=== PATIENT | female | born 1965 | race Caucasian/White ===

== ENCOUNTER 2019-03-14 01:37 | Day surgery (SDC) | payer BC, SELFPAY ==
[2019-03-05 10:20] VITALS: BMI 31.2
--- NOTE | 2019-03-13 13:30 | HP_ITS ---
DATE OF SERVICE: HISTORY: A 53-year-old with sinus issues. She has had repeated sinus infections. She has had multiple medications and multiple antibiotics. PHYSICAL EXAMINATION: NOSE: Congested. CHEST: Clear. HEART: Without murmurs. ABDOMEN: Soft. EXTREMITIES: Negative. REVIEW OF SYSTEMS: Unremarkable. IMAGING DATA: CAT scan shows thickening of the maxillary, ethmoid, and sphenoid sinuses. PLAN: Functional sinus procedure with fusion protocol. D I MT: Carrington
[2019-03-14] VITALS (8 sets, daily range): BP systolic 109–132; BP diastolic 61–75; PULSE 56–82; RESP 14–20; TEMP 36.3–36.7; O2SAT 98–100
--- NOTE | 2019-03-14 06:25 | WPDHPUPDATE1 ---
History and Physical Update Update Date/Time: 03/14/19 06:25 History and Physical has been reviewed, including an updated exam of the patient. There are NO changes in the patient's condition. Risks, benefits, and alternatives have been discussed and questions answered. Patient agrees to proceed with procedure.
[2019-03-14] MEDS: LACTATED RINGERS 1,000 ML 30 ML IV CONT (06:45)
--- NOTE | 2019-03-14 07:48 | WPDANESEPPF ---
Anes - Initial Pre Proc Eval Procedure: Operation Date: 03/14/19 08:00 Proposed Procedures p Functional Endoscopic Sinus Surgery With Fusion - Carlos Vyas MD Date/Time: 03/14/19 07:48 Surgeon: aCrlos Vyas MD Pre Op Diagnosis: Chronic Sinusitis Patient Data Age: 53 Gender: F Height: 5 ft 2 in Weight: 77.5 kg Last Vital Signs Temp 36.3 C L 03/14/19 06:51 Pulse 73 03/14/19 06:51 Resp 20 03/14/19 06:51 BP 132/75 03/14/19 06:51 Pulse Ox 100 03/14/19 06:51 Allergies Allergy/AdvReac Type Severity Reaction Status Date / Time No Known Allergies Allergy Verified 03/14/19 06:49 Home Medications Medication Instructions Recorded Confirmed Type rqaterx-cyenzxnscrzue-ppujbtuq 250 1 tablet PO Q4-6H PRN 01/07/19 03/05/19 History mg-250 mg-65 mg tablet fexofenadine 180 mg tablet 180 mg PO DAILY 01/07/19 03/14/19 History lactobacillus combination no.8 3 3,000 mmu cells PO DAILY 01/07/19 03/14/19 History billion cell capsule levothyroxine 50 mcg tablet 50 mcg PO DAILY #90 tablet 01/08/19 03/14/19 Rx omeprazole 20 mg PO DAILY 03/05/19 03/14/19 History sumatriptan succinate 100 mg PO DIRECTED 03/05/19 03/14/19 History Patient hx anesthesia problems: none Family hx anesthesia problems: none PMFSH Past Medical History Medical History Chondromalacia of both patellae GERD (gastroesophageal reflux disease) Hx of migraines Obesity AZRA (obstructive sleep apnea) Surgical History Surgical History History of surgical removal of ganglion cyst Family History Family History Mother Hypertension Patient's mother is in good health Father Patient's father is Social History Social History Smoking status: Never smoker Second hand tobacco smoke exposure: No Alcohol intake: never Anes - Eval Final PreProcedure Day of Procedure 03/14/19 07:48 Patient weight: obese Heart: regular rate and rhythm Lungs: clear to auscultation Airway: Mallampati scale class II Neurological: alert and oriented Last oral intake: >/= 8 hours ASA classification: III Emergent: no Anesthetic plan: proceed Anesthesia type and monitoring: general ETT and standard monitoring Informed Consent: The patient's anesthetic plan and its attendant risks and benefits were discussed with the patient/family/POA. Questions were solicited and answers provided to the satisfaction of the patient/family/POA.
[2019-03-14] MEDS: LIDO 1%/EPINEPHRINE 1:100,000 20 ML VIAL 6 ML INFILTRATE (08:27)
--- NOTE | 2019-03-14 08:41 | PM.OP ---
Procedure Note - Brief Procedure Note - Brief Date of procedure: 03/14/19 Pre-op diagnosis: Chronic Sinusitis Procedure performed: Patient prepped and draped in usual fashion after induction of general endotracheal anesthesia. The nose was packed with cocaine 4% impregnated cottonoids. Injected 1% xylocaine 1 to [id number] epinephrine. With the aid of the 0 degree endoscope on the right side the nose was inspected the middle turbinate was medialized and turbenectomy was done with the micro debrider the ethmoid bulla opened with microdebrider as was the basal lamella and the posterior ethmoid. The natural ostia of the maxillary sinus was opened and enlarged with microdebrider thickened mucous membrane lining was removed and then packed with a mature this procedure repeated on the other sinus with identical similar findings. Patient awakened returned to recovery in good condition Anesthesia: GLMA Surgeon: Carlos Vyas MD Estimated blood loss (mL): 10 Drains: No Packing: Yes (Hemaderm) Pathology: none sent Complications: No immediate complications Condition: stable Disposition: PACU
== END 2019-03-14 10:36 | disposition home or self-care (01) ==
PROVIDERS: PCP Internal Medicine; Visit Provider Otolaryngology
PROC: (CPT 31255; principal; 2019-03-14 08:00)
DX: J32.9 Chronic sinusitis, unspecified (principal); G47.33 Obstructive sleep apnea (adult) (pediatric); K21.9 Gastro-esophageal reflux disease without esophagitis; E66.9 Obesity, unspecified; Z68.31 Body mass index [BMI] 31.0-31.9, adult
CPT/HCPCS: 31255; 31267; 61782; A9270; J0131; J0330; J1100; J2250; J2405; J2704; J3010; J7120

== ENCOUNTER 2020-04-27 09:37 | Outpatient (CLI) | payer OTHER, SELFPAY ==
--- NOTE | ~2020-04-27 | MM_ITS ---
EXAMINATION: MM screening [facility] BI w vito HISTORY: Screening TECHNIQUE: Craniocaudal and mediolateral oblique 3-D tomosynthesis images were obtained and synthetic 2-D images were generated. CAD analysis was submitted and interpreted. COMPARISON: Comparison to multiple prior studies sequentially, with oldest reviewed study dated 01/13. BREAST PARENCHYMAL COMPOSITION: There are scattered areas of fibroglandular density. FINDINGS: There is no evidence of suspicious mass, calcification, or architectural distortion to sugg est malignancy in either breast. There has been no suspicious interval change. IMPRESSION: 1. No mammographic evidence of malignancy. 2. Recommend routine screening mammography in one year. BI-RADS Category 1: Negative Reviewed, dictated and finalized at location A.
== END 2020-04-27 09:38 | disposition home or self-care (01) ==
LOC: ANHIMG 09:39
PROVIDERS: PCP Internal Medicine; Visit Provider Obstetrics & Gynecology
DX: Z12.31 Encounter for screening mammogram for malignant neoplasm of breast (principal)
CPT/HCPCS: 77063; 77067

== ENCOUNTER 2020-06-08 09:40 | Outpatient (CLI) | payer OTHER, SELFPAY ==
--- NOTE | ~2020-06-08 | MR_ITS ---
EXAMINATION: MR brain/brain stem wo con DATE: 06/08/2020 10:48 INDICATION: Headache, unspecified. TECHNIQUE: Magnetic resonance imaging (MRI) of the brain and brainstem was performed without intraven ous contrast. Sequences included sagittal and axial T1-weighted FSE, axial diffusion-weighted FS EPI, axial T2*-weighted GRE, axial T2-weighted FLAIR Propeller, and axial T2-weighted Propeller. Apparent diffusion coefficient (ADC) maps were created. COMPARISON: Brain MRI 06/15/2016 FINDINGS: There are scattered areas of nonspecific increased T2-weighted signal intensity in the cere bral white matter. There is no intracranial hemorrhage, acute infarction, or abnormal intracranial ma ss lesion. The ventricles are normal in size. There is mild mucosal thickening in the paranasal sinus es. The orbits are normal. The mastoid air cells are normal. IMPRESSION: 1. Stable mild nonspecific cerebral white matter disease, which likely represents chronic small vesse l ischemic disease. Reviewed, dictated and finalized at location A. IMPRESSION: 1. Stable mild nonspecific cerebral white matter disease, which likely represen ts chronic small vessel ischemic disease.
== END 2020-06-08 09:41 | disposition home or self-care (01) ==
PROVIDERS: PCP Internal Medicine; Visit Provider Internal Medicine
DX: R51.9 Headache, unspecified (principal); R90.82 White matter disease, unspecified
CPT/HCPCS: 70551

== ENCOUNTER 2021-01-29 07:33 | Outpatient (CLI) | payer OTHER, SELFPAY ==
--- NOTE | 2021-02-01 13:57 | WPDHOMESLEEP ---
Sleep Study - Home Unattended Date of Study: 01/29/21 <Hui Carrasco DO - Last Filed: 02/01/21 14:16> Ordering Provider: Eliezer Cheung DO <Hui Carrasco, DO - Last Filed: 02/01/21 14:16> Interpreting Provider: Hui Carrasco DO <Hui Carrasco, DO - Last Filed: 02/01/21 14:16> Home Sleep Study Type: Watch PAT <Hui Carrasco, DO - Last Filed: 02/01/21 14:16> Height: 1.55 m <Hui Carrasco DO - Last Filed: 02/01/21 14:16> Weight: 72.575 kg <Hui Carrasco DO - Last Filed: 02/01/21 14:16> Body Mass Index: 30.2 <Hui Carrasco DO - Last Filed: 02/01/21 14:16> Neck Circumference (inches): 13 <Hui Carrasco DO - Last Filed: 02/01/21 14:16> Plato: 9 <Hui Carrasco DO - Last Filed: 02/01/21 14:16> Reason for Sleep Study Patient had an HSAT on 10/04/2017 where she had an AHI of 26.4. She was previously diagnosed with AZRA before this and has been on PAP Therapy. <Hui Carrasco DO - Last Filed: 02/01/21 14:16> Sleep History The patient is a 55-year-old female with GERD, hypothyroidism, migraines, obesity and previously diagnosed obstructive sleep apnea a home sleep test ordered by her primary care physician due to morning headaches, unrefreshing sleep and daytime hypersomnolence. 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 The patient states that she rarely awakens from sleep short of breath. She occasionally awakens at night with heartburn, belching or cough. She rarely snores and is never loud enough that others complain. She occasionally wakes up gasping for air throughout the night. She rarely has breathing problems at night observed by others. She denies sweating excessively at night. She denies having heart palpitations or irregular heartbeats during the night. She rarely falls asleep during the day and never while driving. She denies sleep paralysis, cataplexy and hypnagogic/ hypnopompic hallucinations. She denies having trouble at work due to sleepiness. She denies having nightmares. She occasionally feels sad or depressed. She occasionally has anxiety. She rarely notices parts of her body jerk. She occasionally kicks during the night. She frequently has crawling and aching feelings in her legs and occasionally has leg pain during the night. She rarely going into her teeth during sleep but occasionally awakens with a morning jaw pain. She is really bothered by pain during the day but never awakened by pain during the night. She denies waking up feeling stiff in the morning with sore and achy muscles. She goes to bed at 11:00 p.m. on weekdays and midnight on the weekends. It takes her 30 minutes to fall asleep. She wakes up a few times throughout the night. When she awakens, she will turn over and try to find a new position. She can not fall back asleep within a couple minutes. She awakens at 6:45 a.m. on both weekdays and weekends. She typically gets between 6 and 7 hours of sleep per night. She will stay in bed for 10 minutes after awakening in the morning. She currently lives with her mother and sister. She does not consume any caffeinated beverages within 2 hours of bedtime. She does not engage in physical exercise before bedtime. She will watch television before falling asleep. She does not take naps in the afternoon or the evening. she denies consuming any caffeinated beverages throughout the day. She denies tobacco, alcohol recreational drug use. <Hui Carrasco DO - Last Filed: 02/01/21 14:16> [facility] Past Medical History Medical History: Medical History (Updated 02/01/21 @ 14:12 by Hui Carrasco DO) Chondromalacia of both patellae GERD (gastroesophageal reflux disease) Hx of migraines Obesity AZRA (obstructive sleep apnea) <Hui Carrasco DO - Last Filed: 02/01/21 14:16> Surgical History Surgical History: Surgical History (Reviewed 02/01/21 @
[2021-02-01 14:01] VITALS: BMI 30.2
== END 2021-02-01 09:26 | disposition home or self-care (01) ==
LOC: ANHCSM 07:34
PROVIDERS: PCP Internal Medicine; Visit Provider Internal Medicine
DX: G47.33 Obstructive sleep apnea (adult) (pediatric) (principal); K21.9 Gastro-esophageal reflux disease without esophagitis; E03.9 Hypothyroidism, unspecified; E66.9 Obesity, unspecified; Z68.30 Body mass index [BMI] 30.0-30.9, adult
CPT/HCPCS: 95800

== ENCOUNTER 2021-02-22 12:16 | Outpatient (CLI) | payer OTHER, SELFPAY ==
[2021-02-22 19:05] LABS: SARS-CoV-2 RNA PCR Negative (Negative)
== END 2021-02-22 12:17 | disposition home or self-care (01) ==
LOC: CHSLAB 12:17
PROVIDERS: PCP Internal Medicine; Visit Provider Internal Medicine
DX: Z01.818 Encounter for other preprocedural examination (principal); Z20.822 Contact with and (suspected) exposure to COVID-19
CPT/HCPCS: C9803; U0003; U0005

== ENCOUNTER 2021-02-24 19:52 | Outpatient (CLI) | payer OTHER, SELFPAY ==
--- NOTE | 2021-03-01 10:35 | WPDSLEEPSTUD ---
Sleep Study Date of Study: 02/24/21 Ordering Provider: Eliezer Cheung DO Interpreting Physician: Samantha Lebron MD Sleep Study Type: CPAP Titration Height: 1.57 m Weight: 68.946 kg Body Mass Index: 27.8 Neck Circumference (inches): 13 Micro: 9 Reason for Sleep Study * Home sleep apnea test 01/29/2021 with AHI 11.5 which is consistent with mild sleep apnea; central apnea index of 3.3, with 21 central events. Due to the having more than 10 central events, the patient is not a candidate for autoPAP; she presents for a CPAP titration. When reading the office note, if the patient is having symptoms of TMJ dysfunction which includes jaw pain and jaw popping, the mandibular advancement devices could worsen those symptoms * Home sleep apnea test 10/04/2017 with an AHI of 26.4. She was previously diagnosed with AZRA before this and has been on PAP Therapy. Sleep History Nadia Joshua is a 55-year-old female with GERD, hypothyroidism, migraines, obesity and previously diagnosed obstructive sleep apnea a home sleep test ordered by her primary care physician due to morning headaches, unrefreshing sleep and daytime hypersomnolence. 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 The patient states that she rarely awakens from sleep short of breath. She occasionally awakens at night with heartburn, belching or cough. She rarely snores and is never loud enough that others complain. She occasionally wakes up gasping for air throughout the night. She rarely has breathing problems at night observed by others. She denies sweating excessively at night. She denies having heart palpitations or irregular heartbeats during the night. She rarely falls asleep during the day and never while driving. She denies sleep paralysis, cataplexy and hypnagogic/ hypnopompic hallucinations. She denies having trouble at work due to sleepiness. She denies having nightmares. She occasionally feels sad or depressed. She occasionally has anxiety. She rarely notices parts of her body jerk. She occasionally kicks during the night. She frequently has crawling and aching feelings in her legs and occasionally has leg pain during the night. She rarely going into her teeth during sleep but occasionally awakens with a morning jaw pain. She is really bothered by pain during the day but never awakened by pain during the night. She denies waking up feeling stiff in the morning with sore and achy muscles. Normal bedtime is 11:00 p.m., taking 30 minutes to fall asleep. She wakes up a few times throughout the night. When she awakens, she will turn over and try to find a new position. She can not fall back asleep within a couple minutes. She awakens at 6:45 a.m. on both weekdays and weekends. She typically gets between 6 and 7 hours of sleep per night. She will stay in bed for 10 minutes after awakening in the morning. She currently lives with her mother and sister. She does not consume any caffeinated beverages within 2 hours of bedtime. She does not engage in physical exercise before bedtime. She will watch television before falling asleep. She does not take naps in the afternoon or the evening. Habits: No caffeine, tobacco, alcohol, or recreational drug use. [facility] Past Medical History Medical History (Updated 03/01/21 @ 10:40 by Samantha Lebron MD) Chondromalacia of both patellae GERD (gastroesophageal reflux disease) Hx of migraines Hyperlipidemia Hypothyroidism Obesity AZRA (obstructive sleep apnea) Surgical History Surgical History Deviated septum History of surgical removal of ganglion cyst Family History Family History Mother Hypertension Patient's mother is in good health Father Patient's father is Social History Social History Smoking status: Never smoker Second
[2021-03-01 10:49] VITALS: BMI 27.8
== END 2021-02-25 07:41 | disposition home or self-care (01) ==
PROVIDERS: PCP Internal Medicine; Visit Provider Internal Medicine
DX: G47.33 Obstructive sleep apnea (adult) (pediatric) (principal)
CPT/HCPCS: 95811

== ENCOUNTER 2021-08-25 10:39 | Outpatient (CLI) | payer OTHER, SELFPAY ==
--- NOTE | ~2021-08-25 | XR_ITS ---
XR knee RT min 4V DATE: 08/25/2021 10:58 INDICATION: Right knee pain TECHNIQUE: [place] and weightbearing AP, PA and lateral views COMPARISON: 02/01/2019 right knee FINDINGS: No fracture or dislocation or joint effusion. Joint spaces are relatively well preserved. N o radiopaque intra-articular loose body or chondrocalcinosis. No periosteal reaction or bone destruct ion. IMPRESSION: No significant abnormality Reviewed, dictated and finalized at location A. IMPRESSION: No significant abnormality
== END 2021-08-25 10:40 | disposition home or self-care (01) ==
LOC: ANHIMG 10:41
PROVIDERS: PCP Internal Medicine; Visit Provider Physician Assistant Surgical
DX: M25.561 Pain in right knee (principal)
CPT/HCPCS: 73564

== ENCOUNTER 2021-09-15 09:01 | Outpatient (CLI) | payer OTHER, SELFPAY ==
--- NOTE | ~2021-09-15 | MM_ITS ---
EXAMINATION: MM screening [facility] BI w vito HISTORY: Screening TECHNIQUE: Craniocaudal and mediolateral oblique 3-D tomosynthesis images were obtained and synthetic 2-D images were generated. CAD analysis was submitted and interpreted. COMPARISON: Comparison to multiple prior studies sequentially, with oldest reviewed study dated 05/2014. BREAST PARENCHYMAL COMPOSITION: There are scattered areas of fibroglandular density. FINDINGS: There is no evidence of suspicious mass, calcification, or architectural distortion to sugg est malignancy in either breast. There has been no suspicious interval change. IMPRESSION: 1. No mammographic evidence of malignancy. 2. Recommend routine screening mammography in one year. BI-RADS Category 1: Negative Reviewed, dictated and finalized at location A.
== END 2021-09-15 09:02 | disposition home or self-care (01) ==
PROVIDERS: PCP Internal Medicine; Visit Provider Obstetrics & Gynecology
DX: Z12.31 Encounter for screening mammogram for malignant neoplasm of breast (principal)
CPT/HCPCS: 77063; 77067

== ENCOUNTER 2022-09-21 15:09 | Outpatient (CLI) | payer OTHER, SELFPAY ==
--- NOTE | ~2022-09-21 | CT_ITS ---
Non-contrast CT scan of the Abdomen and Pelvis Clinical indication: Abdominal pain Technique: 2.5 mm axial scans were obtained through the abdomen and pelvis without intravenous or or al contrast. Dose reduction technique was used on this scan by utilizing automated exposure control a nd iterative reconstruction technique. The dose-length product (DLP) was 429.68 mGy-cm. Findings: Images through the lung bases reveal no abnormalities. There is no evidence of renal or ureteral calculi. The kidneys and the ureters are nondilated. The liver, spleen, pancreas, gallbladder, and adrenals appear normal. There is no aortic aneurysm. There is no evidence of bowel obstruction. Normal appendix. Images through the pelvis were performed. There is no evidence of ascites or lymphadenopathy. Urinary bladder unremarkable. Left ovary is mildly prominent as compared to the right, though without distin ct pathologic mass. Impression: Prominent left ovary as compared to the right, though without definite mass lesion. Follow-up pelvic ultrasound could be considered to further evaluate the left ovary, as indicated. No other significant findings. Reviewed, dictated and finalized at location . Impression: Prominent left ovary as compared to the right, though without definite mass les ion. Follow-up pelvic ultrasound could be considered to further evaluate the le ft ovary, as indicated. No other significant findings.
== END 2022-09-21 15:10 | disposition home or self-care (01) ==
PROVIDERS: PCP Internal Medicine; Visit Provider Internal Medicine
DX: R10.12 Left upper quadrant pain (principal)
CPT/HCPCS: 74176

== ENCOUNTER 2023-01-11 13:07 | Outpatient (CLI) | payer OTHER, SELFPAY ==
--- NOTE | ~2023-01-11 | XR_ITS ---
EXAM: XR clavicle LT DATE: 01/11/2023 13:26 HISTORY: PAIN TO MEDIAL LEFT CLAVICLEX 2 MONTHS - NO INJURY . COMPARISON: None available. FINDINGS: Decreased mineralization. No fracture or dislocation. No lytic or blastic lesion. Likely r otator cuff calcific tendinitis. Mild degenerative change in the AC joint and glenohumeral joint. No erosion or periosteal change. Soft tissues within normal limits. IMPRESSION: No acute osseous finding in the left clavicle. Reviewed, dictated and finalized at location K. FOOD SALES ASSISTANT
== END 2023-01-11 13:08 | disposition home or self-care (01) ==
PROVIDERS: PCP Internal Medicine; Visit Provider Physician Assistant
DX: M89.8X1 Other specified disorders of bone, shoulder (principal)
CPT/HCPCS: 73000

== ENCOUNTER → 2023-01-21 09:20 | Outpatient (CLI) | payer OTHER, SELFPAY ==
--- NOTE | ~2023-01-21 | MM_ITS ---
EXAMINATION: MM screening [facility] BI w vito HISTORY: Screening TECHNIQUE: Craniocaudal and mediolateral oblique 3-D tomosynthesis images were obtained and synthetic 2-D images were generated. CAD analysis was submitted and interpreted. COMPARISON: Comparison to multiple prior studies sequentially, with oldest reviewed study dated 04/02. BREAST PARENCHYMAL COMPOSITION: Breast composed of scattered areas of fibroglandular density FINDINGS: There is no evidence of suspicious mass, calcification, or architectural distortion to sugg est malignancy in either breast. There has been no suspicious interval change. IMPRESSION: 1. No mammographic evidence of malignancy. 2. Recommend routine screening mammography in one year. BI-RADS Category 1: Negative . Reviewed, dictated and finalized at location A. TY COMMISSIONER
== END ==
PROVIDERS: PCP Internal Medicine; Visit Provider Obstetrics & Gynecology
DX: Z12.31 Encounter for screening mammogram for malignant neoplasm of breast (principal)
CPT/HCPCS: 77063; 77067

== ENCOUNTER 2023-05-05 00:28 | Day surgery (SDC) | payer OTHER, SELFPAY ==
[2023-04-28 08:45] VITALS: BMI 31.2
--- NOTE | 2023-05-03 10:18 | SUR.PREOP ---
Patient called regarding upcoming procedure. Voicemail left regarding new appointment times.
--- NOTE | 2023-05-04 08:36 | PC.NURSE ---
Patient called regarding upcoming procedure. Reviewed preop instructions, appointment times changed to come in at 1300 for 1430 and procedure prep. patients verbalizes understanding and good with new times.
[2023-05-05 13:02] VITALS: BP 139/71; PULSE 53; RESP 19; TEMP 36.2; O2SAT 100
--- NOTE | 2023-05-05 13:17 | WPDANESEPPF ---
Anes - Initial Pre Proc Eval Procedure: Operation Date: 05/05/23 14:30 Proposed Procedures p Esophagogastroduodenoscopy - Earl Blackmon MD Date/Time: 05/05/23 13:17 Surgeon: Earl Blackmon MD Pre Op Diagnosis: GERD,Dysphagia Patient Data Age: 57 Gender: F Height: 1.55 m Weight: 75 kg Last Vital Signs Temp 97.2 F L 05/05/23 13:02 Pulse 53 L 05/05/23 13:02 Resp 19 05/05/23 13:02 BP 139/71 05/05/23 13:02 Pulse Ox 100 05/05/23 13:02 O2 Del Method Room Air 05/05/23 13:02 Allergies Allergy/AdvReac Type Severity Reaction Status Date / Time No Known Allergies Allergy Verified 05/05/23 13:00 Home Medications Medication Instructions Recorded Confirmed Type aspirin 81 mg capsule 81 mg PO DAILY 01/26/21 05/03/23 History simethicone 125 mg capsule (Gas-X 125 mg PO DAILY PRN Gas Pain 10/19/21 05/03/23 History Extra Strength) fexofenadine 60 mg tablet (Siobhan 60 mg PO Q12H 08/30/22 05/03/23 History Allergy) topiramate 50 mg tablet 50 mg PO BID #180 tabs 01/04/23 05/03/23 Rx sertraline 50 mg tablet 50 mg PO DAILY #90 tabs 01/11/23 05/03/23 Rx ergocalciferol (vitamin D2) 1,250 1,250 mcg PO WEEKLY #12 caps 03/16/23 05/03/23 Rx mcg (50,000 unit) capsule rosuvastatin 5 mg tablet 5 mg PO DAILY #90 tabs 03/16/23 05/03/23 Rx levothyroxine 50 mcg tablet 50 mcg PO DAILY #90 tabs 04/10/23 05/03/23 Rx meloxicam 15 mg tablet 15 mg PO PRN PRN Pain 04/28/23 05/03/23 History omeprazole 40 mg capsule,delayed 40 mg PO BID 04/28/23 05/03/23 History release Patient hx anesthesia problems: none Family hx anesthesia problems: none Results Review: All pre-operative results and documents have been reviewed as part of the pre-operative evaluation. PMFSH Past Medical History Medical History Chondromalacia of both patellae Colon cancer screening Dysphagia GERD (gastroesophageal reflux disease) Hx of migraines Hyperlipidemia Hypothyroidism Obesity AZRA (obstructive sleep apnea) Surgical History Surgical History Deviated septum History of surgical removal of ganglion cyst Family History Family History Mother Hypertension Patient's mother is in good health Father Patient's father is Social History Social History Smoking status: Never smoker Second hand tobacco smoke exposure: No Alcohol intake: never Substance use: unknown Do You Feel Safe in your Home?: Yes Lack of Transportation: No Lack of Food: Never True Current Housing: I Have Housing Concerned About Future Housing: No Difficulty Paying Gas/Electric Bills: No Difficulty Paying for Meds: No Currently Unemployed: No Education: High School Diploma/GED Difficulty w/ Childcare or Family Care: No Living arrangements: with family Spiritual care concerns: No Anes - Eval Final PreProcedure Day of Procedure 05/05/23 13:17 Patient weight: obese Heart: regular rate and rhythm Lungs: clear to auscultation Airway: Mallampati scale class II Neurological: alert and oriented Last oral intake: >/= 8 hours ASA classification: III Emergent: no Anesthetic plan: proceed Anesthesia type and monitoring: general GIVS and standard monitoring Results Review: All pre-operative results and documents have been reviewed as part of the pre-operative evaluation. Informed Consent: The patient's anesthetic plan and its attendant risks and benefits were discussed with the patient/family/POA. Questions were solicited and answers provided to the satisfaction of the patient/family/POA.
[2023-05-05] MEDS: LACTATED RINGERS 1,000 ML 150 ML IV CONT (13:30)
--- NOTE | 2023-05-05 13:54 | WPDHPUPDATE1 ---
History and Physical Update Update Date/Time: 05/05/23 13:54 History and Physical has been reviewed, including an updated exam of the patient. There are NO changes in the patient's condition. Risks, benefits, and alternatives have been discussed and questions answered. Patient agrees to proceed with procedure.
[2023-05-05 14:08] VITALS: BP 120/72; PULSE 66; RESP 14; O2SAT 99
[2023-05-05 14:18] VITALS: BP 134/76; PULSE 58; RESP 17; O2SAT 100
[2023-05-05 14:28] VITALS: BP 129/76; PULSE 57; RESP 13; O2SAT 99
== END 2023-05-05 14:38 | disposition home or self-care (01) ==
PROVIDERS: PCP Internal Medicine; Visit Provider Internal Medicine Gastroenterology
PROC: 0DJ08ZZ Inspection of Upper Intestinal Tract, Via Natural or Artificial Opening Endoscopic (ICD-10-PCS; CPT 43235; principal; 2023-05-05 14:30)
DX: K29.70 Gastritis, unspecified, without bleeding (principal); R13.10 Dysphagia, unspecified; E78.5 Hyperlipidemia, unspecified; E03.9 Hypothyroidism, unspecified; G47.33 Obstructive sleep apnea (adult) (pediatric); E66.9 Obesity, unspecified; Z68.31 Body mass index [BMI] 31.0-31.9, adult; Z79.82 Long term (current) use of aspirin
CPT/HCPCS: 43239; 43450; 88305; J2704; J7120

== ENCOUNTER 2023-07-12 12:34 | Outpatient (CLI) | payer OTHER, SELFPAY ==
--- NOTE | ~2023-07-12 | XR_ITS ---
Right Knee Technique: AP, lateral, and sunrise views were obtained. Clinical History: Chondromalacia patella Findings: No fracture or dislocation is seen. Osseous alignment is anatomic. Joint spaces are preserv ed without degenerative or erosive change. Soft tissues are unremarkable. No joint effusion is seen. Impression: Unremarkable right knee radiographs. Reviewed, dictated and finalized at location . Impression: Unremarkable right knee radiographs.
--- NOTE | ~2023-07-12 | XR_ITS ---
Left Knee Technique: AP, lateral, and sunrise views were obtained. Clinical History: Chondromalacia patella Findings: No fracture or dislocation is seen. Osseous alignment is anatomic. Joint spaces are preserv ed without degenerative or erosive change. Soft tissues are unremarkable. No joint effusion is seen. Impression: Unremarkable left knee radiographs. Reviewed, dictated and finalized at location . Impression: Unremarkable left knee radiographs.
== END 2023-07-12 12:35 | disposition home or self-care (01) ==
LOC: ANHIMG 12:34
PROVIDERS: PCP Internal Medicine; Visit Provider Orthopaedic Surgery
DX: M22.41 Chondromalacia patellae, right knee (principal); M22.42 Chondromalacia patellae, left knee
CPT/HCPCS: 73564

== ENCOUNTER 2024-01-17 13:29 | Outpatient (CLI) | payer OTHER, SELFPAY ==
--- NOTE | 2024-01-17 14:30 | NEURO_ITS ---
Impression: # Complains of right upper extremity pain. # Normal Nerve Conduction Study, no Carpal Tunnel Syndrome or ulnar neuropathy. # Normal needle/EMG exam. # Clinical correlation recommended. Higher involvement needs to be ruled out. Nerve Conduction Studies Anti Sensory Summary Table Stim Site NR Peak (ms) P-T Amp (?V) Site1 Site2 Delta-P (ms) Dist (cm) Mason (m/s) Right Median Anti Sensory (2-3nd Digit) Wrist 3.4 57.5 Wrist 2-3nd Digit 3.4 14.0 41 Wrist 3.5 52.9 Wrist 2-3nd Digit 3.4 14.0 41 Right Radial Anti Sensory (Base 1st Digit) Wrist 2.3 18.0 Wrist Base 1st Digit 2.3 0.0 Right Ulnar Anti Sensory (5th Digit) Wrist 2.5 31.6 Wrist 5th Digit 2.5 14.0 56 Motor Summary Table Stim Site NR Onset (ms) O-P Amp (mV) Site1 Site2 Delta-0 (ms) Dist (cm) Mason (m/s) Right Median Motor (Abd Poll Brev) Wrist 3.3 6.6 Elbow Wrist 6.0 29.0 48 Elbow 9.3 4.0 Right Ulnar Motor (Abd Dig Minimi) Wrist 2.8 5.2 A Elbow Wrist 4.9 28.0 57 A Elbow 7.7 4.7 F Wave Studies NR F-Lat (ms) L-R F-Lat (ms) Right Median (Mrkrs) (Abd Poll Brev) 28.39 Right Ulnar (Mrkrs) (Abd Dig Min) 30.04 EMG Side Muscle Nerve Root Ins Act Fibs Amp Dur Recrt Comment Right 1stDorInt Ulnar C8-T1 Nml Nml Nml Nml Nml Right Ext Indicis Radial (Post Int) C7-8 Nml Nml Nml Nml Nml Right Ext Digitorum Radial (Post Int) C7-8 Nml Nml Nml Nml Nml Right BrachioRad Radial C5-6 Nml Nml Nml Nml Nml Right PronatorTeres Median C6-7 Nml Nml Nml Nml Nml Right Abd Poll Brev Median C8-T1 Nml Nml Nml Nml Nml Right ABD Dig Min Ulnar C8-T1 Nml Nml Nml Nml Nml Right Biceps Musculocut C5-6 Nml Nml Nml Nml Nml Right Triceps Radial C6-7-8 Nml Nml Nml Nml Nml Right Deltoid Axillary C5-6 Nml Nml Nml Nml Nml MTDD
== END 2024-01-17 13:30 | disposition home or self-care (01) ==
LOC: ANHNEURO 13:30
PROVIDERS: PCP Internal Medicine; Visit Provider Internal Medicine
DX: R20.2 Paresthesia of skin (principal); M79.601 Pain in right arm
CPT/HCPCS: 95886; 95909

== ENCOUNTER 2024-03-26 11:10 | Outpatient (CLI) | payer OTHER, SELFPAY ==
--- NOTE | ~2024-03-26 | XR_ITS ---
Right elbow Technique: AP, oblique, and lateral views were obtained. Clinical History: Pain Findings: No acute fracture or dislocation is seen. Osseous alignment is anatomic. Joint spaces are p reserved. There is no displacement of the fat pads, and soft tissues are unremarkable. Impression: Unremarkable radiographs. Reviewed, dictated and finalized at [facility]. 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
== END 2024-03-26 11:11 | disposition home or self-care (01) ==
LOC: MICIMG 11:13
PROVIDERS: PCP Internal Medicine; Visit Provider Orthopaedic Surgery
DX: M25.521 Pain in right elbow (principal)
CPT/HCPCS: 73080

== ENCOUNTER 2024-04-03 09:44 | Outpatient (CLI) | payer OTHER, SELFPAY ==
--- NOTE | ~2024-04-03 | MM_ITS ---
EXAMINATION: MM screening cresencio BI w vito HISTORY: Screening TECHNIQUE: Craniocaudal and mediolateral oblique 3-D tomosynthesis images were obtained and synthetic 2-D images were generated. CAD analysis was submitted and interpreted. COMPARISON: Comparison to multiple prior studies sequentially, with oldest reviewed study dated 04/06. BREAST PARENCHYMAL COMPOSITION: Not dense: There are scattered areas of fibroglandular density. FINDINGS: There is no evidence of suspicious mass, calcification, or architectural distortion to sugg est malignancy in either breast. There has been no suspicious interval change. IMPRESSION: 1. No mammographic evidence of malignancy. 2. Recommend routine screening mammography in one year. BI-RADS Category 1: Negative Reviewed, dictated and finalized at location B. 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
--- OUTSIDE RECORDS SUMMARY | 2024-04-03 09:51 | XMS_ITS | Clinical Summary ---
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 Gender Identity Not on file Sexual Orientation Not on file Plan of Treatment Health Maintenance Due Date Last Done Comments Cervical Cancer Screening Pa p Smear (Age 30 to 64) Every 3 Years 1963 Colorectal Cancer Screening Colonoscopy (10 Years) 1963 Annual Physical 08/20/1966 Hepatitis C 08/20/1981 DTaP, Tdap and Td Vaccines ( 1 - Tdap) 08/20/1982 Cervical Cancer Screening Pa p with HPV Testing (Age 30 to 64) Every 5 Years 08/20/1993 Cervical Cancer Screening with HPV 08/20/1993 Mammogram Screening 2003 Zoster Vaccines (1 of 2) 08/20/2013 COVID-19 Vaccine (2023-2 5 season) 2023 Influenza Adult (#1) 2023 RSV Immunization or 60+ Years (1 - 1-dose 75+ series) 08/20/2038 Meningococcal B Vaccine Aged Out No l onger eligible based on patient's age to complete this topic Meningococcal Vaccine Aged Out No regina oni eligible based on patient's age to complete this topic Pneumococcal Vaccine: Pediat rics (0 to 5 Years) and At-Risk Patients (6 to 64 Years) Aged Out No longer eligible b ased on patient's age to complete this topic RSV Immunizations Under 20 Months Aged Out No longer eligible based on patient's age to complete this topic
== END 2024-04-03 09:45 | disposition home or self-care (01) ==
LOC: ANHIMG 09:46
PROVIDERS: PCP Internal Medicine; Visit Provider Obstetrics & Gynecology
DX: Z12.31 Encounter for screening mammogram for malignant neoplasm of breast (principal)
CPT/HCPCS: 77063; 77067

== ENCOUNTER 2024-11-19 14:06 | Outpatient (CLI) | payer OTHER, SELFPAY ==
--- NOTE | ~2024-11-19 | XR_ITS ---
EXAMINATION: XR elbow RT min 3V, 11/19/2024 14:10 CDT HISTORY: M77.11 - Lateral epicondylitis, right elbow COMPARISON: No comparisons available. Findings: No acute fracture or malalignment. No significant degenerative changes. Soft tissues unremarkable. Impression: No acute fracture or malalignment. Reviewed, dictated and finalized at location P. Impression: No acute fracture or malalignment.
== END 2024-11-19 14:07 | disposition home or self-care (01) ==
LOC: MICIMG 14:07
PROVIDERS: PCP Internal Medicine; Visit Provider Orthopaedic Surgery
DX: M77.11 Lateral epicondylitis, right elbow (principal)
CPT/HCPCS: 73080